=== PATIENT | female | born 1955 | race African-American/Black ===

== ENCOUNTER 2017-06-27 10:03 | Day surgery (SDC) | payer BC ==
[2017-06-22 15:59] VITALS: BMI 24.1
[~2017-06-27 10:03] MED LIST: LEVOFLOXACIN 500 MG PREMIX BAG IVPB ONE
[2017-06-27] MEDS ORDERED: MIDAZOLAM HCL 2 MG/2 ML SINGLE DOSE VIAL ONE (11:37)
[2017-06-27] MEDS ORDERED: LEVOFLOXACIN 500 MG IVPB 500 MG/100 ML BAG IVPB ONE (11:57)
[2017-06-27] MEDS ORDERED: LEVOFLOXACIN 500 MG PREMIX BAG IVPB ONE (11:58)
[2017-06-27 13:08] VITALS: TEMP 98.1
[2017-06-27 15:01] VITALS: BP 152/90; PULSE 65
--- NOTE | 2017-06-27 15:38 | OP ---
Operative Note - Note: Operative Date: 06/27/17 Pre-Operative Diagnosis: right renal stones Operation: right eswl Findings: five stones identified two right upper pole 3mm x 5mm and one 3mm x 5mm mid pole stone lithotripsied patient has two 3mm x 5mm right lower pole stones untouched requiring follow-up lithotripsy Post-Operative Diagnosis: Same as Pre-op Surgeon: Robert Limon Anesthesia: Fractional
--- NOTE | 2017-06-27 22:28 | OP ---
DATE OF OPERATION: 06/27/2017 PREOPERATIVE DIAGNOSIS: Right renal stones. POSTOPERATIVE DIAGNOSIS: Right renal stones. PROCEDURE: Right extracorporeal shock wave lithotripsy. ATTENDING: Ana Rosa Oh MD ANESTHESIA: Fractional. DESCRIPTION OF OPERATION: Patient was brought in the operating room and placed in a supine position on the operating room table. Ultrasonography and fluoroscopy were performed. A total of 5 stones were identified. Two stones, each measuring 3 x 5 mm, were identified in the right upper pole. Another stone measuring 3 x 5 mm was identified in the right mid-pole. Two further stones, each measuring 3 x 5 mm, were identified in the lower pole. It was decided to fragment as many stones as we could properly. Anesthesia was administered as was preoperative antibiotics. The 2 stones in the upper pole and the 1 stone in the middle pole were targeted. A total of 2500 impulses at 17 joules of power were administered to the stones. Excellent fragmentation of the stones was performed, was noted under real-time ultrasonography and fluoroscopy. No complications were noted. The patient has two residual lower-pole stones each measuring 3 x 5 mm. Patient will require shock wave lithotripsy at a later date for these stones. The disposition of the patient was to recovery room. ANA ROSA OH M.D. [id number]
== END 2017-06-27 15:30 | disposition home or self-care (01) ==
LOC: JASU-SURG 10:03
PROVIDERS: ATTEND Urology
PROC: 0TF3XZZ Fragmentation in Right Kidney Pelvis, External Approach (ICD-10-PCS; principal; 2017-06-27 11:45)
DX: N20.0 Calculus of kidney (principal)
CPT/HCPCS: 94760